=== PATIENT | male | born 1960 | race Caucasian/White ===

== ENCOUNTER 2019-09-04 17:24 | Inpatient (IN) ==
[2019-09-04] MEDS ORDERED: ASPIRIN PO ONE (17:31)
--- NOTE | 2019-09-04 17:40 | ED EKG INTERP ---
This chart was entered by Gabrielle Smith Scribe, acting as scribe for Kyle Gutierrez MD. EKG Interpretation - EKG Time of EKG reading by physician:: 17:33 EKG Read and Signed by:: Kyle Gutierrez EKG Interpretation (*Must complete 3 of following elements*): Abnormal Rate: 90 Rhythm: NSR [place]: normal QRS: normal ND Interval: normal Comments: nonspecific T wave abnormality Attestation - Physician/ KATH Attestation Patient care was provided by Advanced Practice Provider:: No The physician spent face to face time with patient:: Yes Advanced Practice Provider documentation review:: Supervising physician onsite and consulted in the evaluation and care of this patient. The physician did have a face to face encounter with the patient. This chart was documented by the indicated scribe, (Gabrielle Smith Scribe) and accurately reflects the services I performed and decisions made by me, Kyle Gutierrez MD, as attested by the provider's signature.
[2019-09-04 17:56] LABS: BASO# 0.04 X1000 (0.0-0.2); BASO% 0.5 % (0.0-0.8); EOS# 0.25 X1000 (0.0-0.7); HEMATOCRIT 43.3 % (42.0-52.0); HEMOGLOBIN 14.3 g/dL (14.0-18.0); IMM GRAN# 0.02 X1000 (0.0-0.04); IMM GRAN% 0.2 % (0.0-0.5); LYMPH# 2.51 X1000 (1.2-3.4); LYMPH% 30.4 % (20.5-51.1); MCH 28.2 PG (27-31); MCV 85.4 FL (81-99); MONO% 9.7 % (1.7-9.3); MPV 10.2 FL (7.4-10.4); NEUT# 4.64 X1000 (1.4-6.5); NEUT% 56.2 % (42.2-75.2); PLT 248 X1000 (130-400); RBC 5.07 XMIL (4.7-6.1); RDW 14.9 % (11.5-14.5); WBC 8.26 X1000 (4.8-10.8)
[2019-09-04 18:13] LABS: AGAP 12; ALB/GLOB RATIO 2.1; ALBUMIN 4.5 g/dL (3.5-5.0); ALKALINE PHOSPHATASE 33 U/L (32-122); BUN 11 mg/dL (8-22); CALCIUM 9.1 mg/dL (8.8-10.2); CHLORIDE 101 mmol/L (98-107); CK PROFILE 91 U/L (24-204); COSMO 284; CREATININE 0.8 mg/dL (0.7-1.2); ESTIMATED GFR > 60; GLUCOSE 119 mg/dL (70-104); GOT 15 U/L (10-34); GPT 13 U/L (10-44); POTASSIUM 4.2 mmol/L (3.5-5.1); SODIUM 142 mmol/L (136-145); TCO2 29 mmol/L (25-35); TOTAL BILIRUBIN 0.24 mg/dL (0.20-1.00); TOTAL PROTEIN 6.6 g/dL (6.3-8.3)
--- NOTE | 2019-09-04 18:29 | EKG Report ---
Test Performed on : 09/04/2019 5:33:39 PM Test Reason : cp Blood Pressure : / mmHG Vent. Rate : 090 BPM Atrial Rate : 090 BPM P-R Int : 164 ms QRS Dur : 068 ms QT Int : 358 ms P-R-T Axes : 043 046 049 degrees QTc Int : 437 ms Normal sinus rhythm. Nonspecific T wave abnormality Abnormal ECG When compared with ECG of 30-JUN-2017 22:57, Criteria for Septal infarct are no longer present ST no longer elevated in Lateral leads Nonspecific T wave abnormality now evident in Lateral leads Unconfirmed Result
[2019-09-04] MEDS ORDERED: NITROGLYCERIN TOP ONE (18:46)
--- NOTE | 2019-09-04 18:50 | PROVIDER DOCUMENTATION ---
HPI-General Adult - General Chief Complaint: Chest Pain Stated Complaint: CP Time Seen by Provider: 09/04/19 17:39 Source: patient, family Allergies/Adverse Reactions: Patient Allergies Allergy/AdvReac Type Severity Reaction Status Date / Time No Known Allergies Allergy Verified 09/04/19 20:03 Home Medications: Home Medication List Medication Instructions Recorded Confirmed Last Taken Type Hydrocodone/APAP 7.5 mg/325 mg 1 each PO Q6H PRN PRN #20 tablet 11/30/16 09/04/19 09/03/19 Rx [[place]-7.5] Aspirin 325 mg PO DIRECTED 04/23/18 09/04/19 09/01/19 History Ibuprofen [Motrin] 800 mg PO Q8H PRN PRN #20 tab 04/23/18 09/04/19 09/03/19 Rx - History of Present Illness -Gen Adult Nature of Presenting Problems: 59yo male presents with CC of chest pain. The patient reports 3 days of sharp chest pain that radiates to the shoulder and down his arm and is associated with some arm numbness and shortness of breath. The pain is non exertional and he has had episodes of this pain over the last 3-4 months. The patient denies any fever, bleeding, swelling, or other pain. The patient reports that he has been coughing and having some weakness. Review of Systems - Adult - REVIEW OF SYSTEMS - ADULT Constitutional: reports: no symptoms reported. denies: fever Eyes: reports: no symptoms reported. denies: eye pain Ears, Nose, Mouth & Throat: reports: no symptoms reported. denies: throat pain Cardiovascular: reports: chest pain Respiratory: reports: cough, shortness of breath Gastrointestinal: reports: nausea. denies: abdominal pain Genitourinary: reports: no symptoms reported. denies: flank pain Musculoskeletal: reports: joint pain (shoulder) Integumentary: reports: no symptoms reported Neurological: reports: numbness (left arm). denies: headache/migraines Psychiatric: reports: no symptoms reported Endocrine: reports: no symptoms reported Hematologic/Lymphatic: reports: no symptoms reported Allergic/Immunologic: reports: no symptoms reported Past History - Adult - PAST MEDICAL HISTORY-ADULT Review of Records: reports: Old Records Reviewed Major Childhood Illnesses: reports: denies history Cardiovascular: reports: hyperlipidemia Respiratory: reports: denies history Gastrointestinal: reports: denies history Obstetrical/Gynecological: reports: denies history Genitourinary: reports: denies history Musculoskeletal: reports: denies history Neurological: reports: denies history Endocrine/Immune: reports: denies history Other Conditions: reports: denies history - PRIOR SURGERIES/PROCEDURES Surgical/Procedure History: reports: appendectomy, tonsillectomy, back/neck - IMMUNIZATION STATUS Childhood Immunizations: See Nurse Assessment Flu Vaccine: See Nurse Assessment - FAMILY HISTORY Family History: reviewed, not pertinent Physical Exam-General - PHYSICAL EXAM-ADULT Initial Vital Signs Reviewed: Yes - CONSTITUTIONAL General Appearance: appears well, alert, no apparent distress - EYES Eyes: negative: conjuctival exudate, photophobia, scleral icterus, subconjunctival hemorrhage - HEAD, EARS, NOSE, MOUTH & THROAT HENMT: normocephalic/atraumatic, moist mucous membranes. negative: pharynx normal, hearing deficit - NECK Neck: non-tender, supple. negative: lymphadenopathy - RESPIRATORY Respiratory: no respiratory distress, decreased breath sounds (RLL), rales (LLL) - CARDIOVASCULAR Cardiovascular: regular rate, rhythm, no edema - GASTROINTESTINAL (ABDOMEN) Abdominal Exam: non tender, soft - MUSCULOSKELETAL Extremity: non-tender. negative: deformity, swelling, tenderness - SKIN Integumentary: normal color, warm/dry. negative: cyanosis, diaphoresis, pallor - NEUROLOGIC Neurologic: grossly normal - PSYCHIATRIC Psych/Mental Status: normal mood/affect, normal thought content, normal thought process Progress - PLAN OF CARE/RESULTS Progress/Plan/Lab Results: Vital Signs - 8 hr 09/04/19 17:28 Temperature 98.3 F Pulse Rate 88 Respiratory Rate 18 Blood Pressure 211/109 O2 Sat by Pulse Oximetry 97 Laboratory Results - last 24 hr 09/04/19 09/04/19 09/04/19 17:40 17:40 17:40 WBC 8.26 RBC 5.07 Hgb 14.3 Hct 43.3 MCV 85.4 MCH 28.2 MCHC 33.0 RDW Std Deviation 14.9 H Plt Count 248 MPV 10.2 Immature Gran % (Auto) 0.2 Neut % (Auto) 56.2 Lymph % (Auto) 30.4 [place] % (Auto) 9.7 H Eos % (Auto) 3.0 Baso % (Auto) 0.5 Immature Gran # (Auto) 0.02 Neut # (Auto) 4.64 Lymph # (Auto) 2.51 [place] # (Auto) 0.80 H Eos # (Auto) 0.25 Baso # (Auto) 0.04 PTT (Actin FS) Sodium 142 Potassium 4.2 Chloride 101 Carbon Dioxide 29 Anion Gap 12 BUN 11 Creatinine 0.8 Estimated GFR/1.73 m2 > 60 BUN/Creatinine Ratio 14 Glucose 119 H Calculated Osmolality 284 Calcium 9.1 Total Bilirubin 0.24 AST 15 ALT 13 Alkaline Phosphatase 33 Creatine Kinase 91 Afb-L-Ifjiqifcejf Pept 40 Total Protein 6.6 Albumin 4.5 Globulin 2.1 Albumin/Globulin Ratio 2.1 09/04/19 17:40 WBC RBC Hgb Hct MCV MCH MCHC RDW Std Deviation Plt Count MPV Immature Gran % (Auto) Neut % (Auto) Lymph % (Auto) [place] % (Auto) Eos % (Auto) Baso % (Auto) Immature Gran # (Auto) Neut # (Auto) Lymph # (Auto) [place] # (Auto) Eos # (Auto) Baso # (Auto) PTT (Actin FS) 30.6 Sodium Potassium Chloride Carbon Dioxide Anion Gap BUN Creatinine Estimated GFR/1.73 m2 BUN/Creatinine Ratio Glucose Calculated Osmolality Calcium Total Bilirubin AST ALT Alkaline Phosphatase Creatine Kinase Hpc-X-Uasmwmspokn Pept Total Protein Albumin Globulin Albumin/Globulin Ratio Orders Category Date Time Status Cardiac Monitoring DIRECTED Care 09/04/19 17:31 Active Oxygen Therapy- ED Nursing DIRECTED Care 09/04/19 17:31 Active Saline Loc NOW Care 09/04/19 17:31 Active CHEST-2 VIEWS [RAD] Stat Exams 09/04/19 17:31 Taken CBC WITH ELECTRONIC DIFF [HEME] Stat Lab 09/04/19 17:40 Completed CK PROFILE [SP CHEM] Stat Lab 09/04/19 17:40 Completed COMPREHENSIVE METABOLIC PANEL [CHEM] Stat Lab 09/04/19 17:40 Completed PRO B-NATRIURETIC PEPTIDE Stat Lab 09/04/19 17:40 Completed PROTIME WITH INR [COAG] Stat Lab 09/04/19 17:40 Received PTT [COAG] Stat Lab 09/04/19 17:40 Completed TROPONIN T HIGH SENSITIVITY Stat Lab 09/04/19 17:40 Received Aspirin Med 09/04/19 17:31 Discontinued 325 mg PO NOW ONE CP/SOB/Palp >45 yrs of Age Stat Oth 09/04/19 17:31 Ordered EKG [EKG] Stat Ther 09/04/19 17:31 Draft Result Diagrams: 09/04/19 17:40 09/04/19 17:40 - REASSESSMENT Reassessment #1 Status: improving (Pt reports that his chest pain has resolved. Given nature of chest pain including exertional, radiating to the should, and patient risk factor of HTN, HLD, smoking and family hx as well as some T wave changes on EKG will admit pt for stress testing. Discussed the case with the hospitalist team who has accepted the patient.) Departure - Departure Date of Disposition Decision: 09/04/19 Time of Disposition Decision: 21:57 DIAGNOSIS: Chest pain Qualifiers: Chest pain type: unspecified Qualified Code(s): R07.9 - Chest pain, unspecified Disposition: ADMITTED INPATIENT 09 Certified Medical Emergency: Emergent Condition: Stable - Critical Care Note This patient required my direct & personal management of CC.: No Attestation - Physician/ KATH Attestation Patient care was provided by Advanced Practice Provider:: No The physician spent face to face time with patient:: Yes Advanced Practice Provider documentation review:: Supervising physician onsite and consulted in the evaluation and care of this patient. The physician did have a face to face encounter with the patient. - HEART Score HEART Score: History: Moderately Suspicious HEART Score: ECG: Normal HEART Score: Age: 45-65 Years HEART Score: Risk Factors for Atherosclerotic Disease: > or = 3 Risk Factors or History of Atherosclerotic Disease HEART Score: Troponin: < or = Normal Limit Total HEART Score:: 4
[2019-09-04 18:57] LABS: INR 0.91; PROTIME 12.3 Seconds (11.0-16.0)
--- NOTE | 2019-09-04 19:03 | Diag Imaging Result Doc PS360 ---
EXAM: CHEST-2 VIEWS INDICATION: cp TECHNIQUE: 2 views COMPARISON: 06/30/2017 FINDINGS: There is evidence of prior granulomatous disease, stable. The lungs are grossly clear. There is no discrete pleural fluid collection or pneumothorax. The cardiomediastinal silhouette and central vasculature are grossly unremarkable. IMPRESSION: No evidence of acute pathology by plain radiograph. Electronically signed by Dangelo Blanton 09/04/2019 7:01 PM
[2019-09-04] MEDS ORDERED: TORADOL IV ONE (19:37)
--- NOTE | 2019-09-04 22:29 | EKG Report ---
Test Performed on : 09/04/2019 10:18:11 PM Test Reason : Repeat Blood Pressure : / mmHG Vent. Rate : 084 BPM Atrial Rate : 084 BPM P-R Int : 166 ms QRS Dur : 072 ms QT Int : 378 ms P-R-T Axes : 047 038 065 degrees QTc Int : 446 ms Normal sinus rhythm. Nonspecific T wave abnormality Abnormal ECG When compared with ECG of 04-SEP-2019 17:33, (Unconfirmed) Inverted T waves have replaced nonspecific T wave abnormality in Lateral leads Unconfirmed Result
--- NOTE | 2019-09-05 00:39 | HISTORY AND PHYSICAL ---
PRIMARY CARE PROVIDER: None. CHIEF COMPLAINT: Chest pain. HISTORY OF PRESENTING ILLNESS: A 59-year-old male without any significant past medical history, presented to emergency department with 1-day history of having chest pain. He described it as a pressure-like and heaviness and states that he has some mild shortness of breath. He was seen in the ED and, due to his presenting symptoms, it was thought that we will place him for observation for further evaluation and management. At the time of my examination, patient denied any headache, fever, chills, nausea, vomiting, diarrhea, hemoptysis, melena, weight changes, but complained chest pain. PAST MEDICAL HISTORY: None. PAST SURGICAL HISTORY: Back surgery, appendectomy. ALLERGIES: No known drug allergies. CURRENT MEDICATIONS: None. SOCIAL HISTORY: A [id number] history of smoking. Admits to social alcohol use. Denies any illicit drug use. FAMILY HISTORY: No history of coronary disease. REVIEW OF SYSTEMS: Fourteen-point review of system listed as in HPI. Other systems negative. PHYSICAL EXAMINATION: GENERAL: Cooperative, friendly male. He is resting comfortably now. VITAL SIGNS: Temperature 98.3 degrees, pulse 88, respiration 18, blood pressure 211/109, repeat is 134/97. HEENT: Atraumatic, normocephalic. Extraocular movements intact. PERRLA. NECK: Supple. CHEST: Clear to auscultation. CARDIOVASCULAR: Regular rate and rhythm. ABDOMEN: Soft. Positive bowel sounds. EXTREMITIES: No edema. NEUROLOGIC: He is awake, alert, oriented x3. GENITOURINARY: No bladder distention. SKIN: Warm. LABORATORIES AND STUDIES: WBC is 8.26, hemoglobin 14.3, hematocrit 43.3, platelets 248,000. Troponin is 12. Sodium 142, potassium 4.2, chloride 101, CO2 is 29, BUN is 11, creatinine 2.8. Glucose 119. Chest x-ray, no evidence of any acute pathology. ASSESSMENT: A 59-year-old male without any significant past medical history who presented to emergency department with 1-day history of having chest pain. We will place him in for observation for further evaluation and management. ASSESSMENT: 1. Chest pain, atypical. 2. Ongoing tobacco abuse. PLAN: 1. We will admit patient to medical floor with telemetry. 2. Continue with cardiac workup. Check EKG, serial cardiac enzymes. Have patient continue on aspirin. We will use sublingual nitroglycerin p.r.n. chest pain. 3. Consult Cardiology. 4. I counseled the patient extensively on smoking cessation. 5. We will put patient on DVT prophylaxis with Lovenox. 6. Continue to follow, reassess, make further recommendation based on patient's clinical course. cc: Joaquim Gan MD
[2019-09-05] MEDS ORDERED: TYLENOL PO PRN (02:39)
[2019-09-05] MEDS ORDERED: NITROGLYCERIN SL PRN (02:39)
[2019-09-05] MEDS ORDERED: ZOFRAN IV PRN (02:39)
[2019-09-05] MEDS ORDERED: LOVENOX SUBQ SCH (02:39)
[2019-09-05] MEDS ORDERED: PRILOSEC PO SCH (07:00)
[2019-09-05] MEDS ORDERED: ASPIRIN PO SCH (09:00)
--- NOTE | 2019-09-05 09:13 | EKG Report ---
Test Performed on : 09/05/2019 09:07:29 AM Test Reason : chest pain Blood Pressure : / mmHG Vent. Rate : 075 BPM Atrial Rate : 075 BPM P-R Int : 168 ms QRS Dur : 078 ms QT Int : 362 ms P-R-T Axes : 048 043 050 degrees QTc Int : 404 ms Normal sinus rhythm. Nonspecific T wave abnormality Abnormal ECG When compared with ECG of 04-SEP-2019 22:18, (Unconfirmed) Nonspecific T wave abnormality has replaced inverted T waves in Lateral leads Confirmed by James Pate MD ([id number]) on 09/06/2019 9:15:35 PM
[2019-09-05 09:33] LABS: CHOLESTEROL 192 mg/dL (0-200); HDL 38 mg/dL (35-55); LDL 96 mg/dL; TRIGLYCERIDES 288 mg/dL (39-160); VLDL 58 mg/dL
[2019-09-05 09:54] LABS: HEMATOCRIT 44.5 % (42.0-52.0); HEMOGLOBIN 14.4 g/dL (14.0-18.0); MCH 28.2 PG (27-31); MCHC 32.4 g/dL (33-37); MCV 87.3 FL (81-99); MPV 10.2 FL (7.4-10.4); RBC 5.1 XMIL (4.7-6.1); WBC 8.09 X1000 (4.8-10.8)
--- NOTE | 2019-09-05 10:12 | CARDIOLOGY CONSULTATION ---
DATE: 09/05/2019 CHIEF COMPLAINT ON PRESENTATION: Left shoulder and chest pain. HISTORY OF PRESENT ILLNESS: Mr. Van is a 59-year-old male with no past medical history by virtue of not being evaluated by physicians on a regular basis. He presented for evaluation of chest discomfort that has been going on for around 3 weeks. This at times will last for days on end and feel like a knife stabbing him. Most of the pain will originate in the left shoulder with some occasional radiation into the chest and arm areas. He does not have any exertional component with it, but at times noticed some pain with movement of the arm, as well as pushing in the shoulder area. He has a history of shoulder and neck injuries in the past. Again, no previous cardiac history. PAST MEDICAL HISTORY: None by virtue of lack of contact with the medical community. SOCIAL HISTORY: He does smoke, occasional alcohol use. He works in a physical job. REVIEW OF SYSTEMS: A 10 system review of systems is negative, except for those things mentioned in HPI. FAMILY HISTORY: Negative for early coronary disease in his first-degree relatives. PHYSICAL EXAM: Vital Signs: The patient is afebrile. His heart rate is 77, blood pressure 148/78. Generally: He is in no acute distress. HEENT: Oropharynx is moist. Poor dentition. Eye examination shows pink conjunctivae, white sclerae. Neck: Examination shows no obvious thyromegaly or thyroid tenderness. Cardiovascular: He sounds to be in a regular rate and rhythm. He has no obvious murmurs present. He has no S3. He has no lower extremity edema. Chest: Exam sounds clear bilaterally. He has no increased work of breathing. Abdomen: Soft, nontender, nondistended. He has no obvious organomegaly. Skin: Exam is warm and dry throughout without any rashes. Neurological: He is moving all extremities well. Musculoskeletal: Examination was notable for mild tenderness to palpation in the left upper scapular area. He was able to move the shoulder relatively freely without any discomfort. PERTINENT DATA: His chest x-ray shows no evidence of acute abnormalities. His EKG tracings reviewed by me initially on the at 0907 hours shows sinus rhythm. His next EKG on the at 1733 hours shows sinus rhythm, no signs of ischemic changes or significant evidence of infarct. Final EKG reviewed was EKG tracing on September 03 at 2218 hours that shows sinus rhythm, no clear evidence of ischemic changes. His white count is 8.2, hematocrit 43, platelet count 248. His sodium is 142, potassium 4.2. BUN 11, creatinine 0.8. His cardiac enzymes were checked times multiple sets. Initial was 12, subsequent checks of 7 and 8. Last check was 8 hours after the initial. His LDL was 96. His HDL is 38. ASSESSMENT: Mr. Van is a 59-year-old gentleman with somewhat atypical chest pain. PLAN: We will proceed with perfusion imaging and an echocardiogram. Further results to follow the results of the testing. He has been advised to quit smoking and establish with primary physician. cc: Arie De La Vega MD
[2019-09-05] MEDS ORDERED: LEXISCAN ONE (11:46)
[2019-09-05 14:29] VITALS: BP 142/78
[2019-09-05] MEDS ORDERED: TORADOL IV PRN (15:24)
[2019-09-05] MEDS ORDERED: TORADOL IV ONE (15:24)
--- NOTE | 2019-09-05 16:29 | Diag Imaging Result Document ---
PROCEDURE NAME: MYOCARDIAL PERF SCAN, STR/REST - 09/05/2019 A 59-year-old male with chest pain. STUDY: Rest/stress treadmill exercise myocardial perfusion study. INDICATION: Chest pain. DESCRIPTION: The patient came into the nuclear laboratory, received resting injection of technetium 99 sestamibi 14.1 mCi. Multiple tomographic views of the cardiac structures were obtained at rest. Subsequently, the patient exercised on the treadmill using the Javier protocol. At peak exercise, injected with technetium 99 sestamibi 42.5 mCi. Multiple tomographic views of the cardiac structures were obtained following completion of the protocol. SUMMARY OF THE ELECTROCARDIOGRAPHIC PORTION OF THE STUDY: Resting electrocardiogram shows normal sinus rhythm, resting rate is 78 per minute, resting blood pressure 126/104. Resting ECG shows a nonspecific T wave flattening. The patient walked on the treadmill for a total of time of 10 minutes. He completed 3 stages of the protocol and walked for 1 minute into the fourth stage achieving a maximum heart rate of 142 beats per minute representing 87% of maximum predicted heart rate for his age. Test terminated due to fatigue and achievement of adequate heart rate. The patient reported no chest pain, shortness of breath, or palpitations. The radiotracer injected 1 minute prior to the termination of exercise. Peak blood pressure 198/100. Following the completion of the study, the heart rate and blood pressure returned back to baseline. There were no significant abnormalities other than a minor ST flattening during the recovery phase. Occasional PVCs were noted. In summary, electrocardiographic response to a treadmill exercise study is normal. The patient's exercise capacity is 15% above average for age and gender, the workload is 11.7 METS. Level of stress based on double product of peak systolic blood pressure times peak heart rate appears to be greater than 25,000. SUMMARY OF THE MYOCARDIAL PERFUSION PORTION OF THE STUDY: Poststress tomographic views of the left ventricle showed normal homogeneous distribution of radiotracer throughout the entire left ventricular myocardium. There is no evidence of any postexercise defect. The rest images showed normal perfusion. Polar plots revealed the same. No evidence of any inducible ischemia nor myocardial scar. Gated SPECT showed normal left ventricular systolic function, ejection fraction of 72%, normal ventricular volumes, no wall motion abnormality. Lung/heart ratio is normal. TID is normal. SUMMARY: This study shows: 1. Normal electrocardiographic response to a treadmill exercise protocol. The patient achieved 87% of maximum predicted heart rate for his age, good blood pressure response, workload 11.7 METS. Exercise capacity 15% above average for age and gender. 2. Normal poststress myocardial perfusion scan. There is no scintigraphic evidence of exercise- induced myocardial ischemia. 3. Normal left ventricular systolic function, ejection fraction 72%, normal ventricular volumes, no wall motion abnormality. The study represents low risk for ischemic events. cc: MD Carolann Campo PA
--- NOTE | 2019-09-06 08:56 | ECHO REPORT ---
ORDER DATE: 09/05/2019 INTERPRETING PHYSICIAN: Zachery Jara MD. CLINICAL INDICATIONS: Chest pain. M-MODE MEASUREMENTS: Left ventricle end diastole: 4.6 cm. Left ventricle end systole: 2.9 cm. Posterior wall: 1.1 cm. Interventricular septum: 1.1 cm. Left atrium: 4.1 cm. Aortic diameter: 3.2 cm. SUMMARY OF 2-DIMENSIONAL IMAGIN. Left ventricular function is normal. Ejection fraction of 65%. There is no wall motion abnormality noted. 2. The aortic valve looks normal. Color flow mapping unremarkable. 3. The mitral valve looks normal. Color flow mapping unremarkable. 4. Pulse wave Doppler of mitral inflow shows mild reversal of the E and A ratio. 5. Tissue Doppler of septal and lateral mitral annulus averages 6-1/2 cm. 6. The tricuspid valve shows mild degree of regurgitation. 7. The pulmonary pressure is estimated at 38-43 mmHg. 8. The pulmonic valve is normal. Color flow mapping unremarkable. 9. There is no pericardial effusion, no mass, and no thrombus. SUMMARY: This study shows: 1. Normal left ventricular systolic function. 2. Borderline impaired left ventricular relaxation. 3. Mild degree of tricuspid regurgitation with pulmonary pressure of 38-43 mmHg. 4. There is no pericardial effusion, no mass, and no thrombus. 5. Inferior vena cava is not dilated. Left atrium is normal. Clinical correlation is recommended. cc: MD Carolann Campo PA
[2019-09-06] MEDS ORDERED: ASPIRIN PO SCH (09:00)
== END 2019-09-05 18:28 | disposition home or self-care (01) | DRG 313 ==
LOC: ED 17:24 → SUATTDRO 09-05 00:51 → EDIPHOLD 09-05 00:51 → 3N 09-05 12:31
PROVIDERS: ATTEND Internal Medicine